=== PATIENT | female | born 1995 | race American Indian/Alaskan Native ===

== ENCOUNTER 2019-06-12 19:33 | Emergency (ER) | payer SELFPAY ==
[2019-06-12 19:46] VITALS: BP 162/87
--- NOTE | 2019-06-12 20:47 | Emergency Department Report ---
Minor Respiratory - HPI Chief Complaint: Sore Throat Stated Complaint: SWOLLEN THROAT, FEVER Time Seen by Provider: 06/12/19 20:46 ED Review of Systems ROS: Stated complaint: SWOLLEN THROAT, FEVER Other details as noted in HPI Comment: All other systems reviewed and negative ED Past Medical Hx - Past Medical History Previous Medical History?: No - Surgical History Past Surgical History?: No - Social History Smoking Status: Never Smoker Substance Use Type: None - Medications Home Medications: Home Medications Medication Instructions Recorded Confirmed Last Taken Type Amoxicillin [Amoxicillin 400 MG/5 500 mg PO BID #10 day 06/12/19 Unknown Rx ML] Minor Respiratory Exam - Exam General: Vital signs noted. No distress. Alert and acting appropriately. HEENT: Yes Pharyngeal Erythema, Yes Moist Mucous Membranes, No Pharyngeal Exudates Ear: Neither TM Bulge, Neither TM Erythema, Neither EAC Pain, Neither EAC Discharge Neck: Yes Supple, No Adenopathy Lungs: Yes Good Air Exchange, No Wheezes, No Ronchi Heart: Yes Regular, No Murmur Skin: No Rash Neurologic: Alert and oriented, no deficits. Musculoskeletal: Unremarkable. ED Course Vital Signs 06/12/19 19:45 Temperature 100.4 F H Pulse Rate 98 H Respiratory 20 Rate Blood Pressure 162/87 O2 Sat by Pulse 100 Oximetry ED Medical Decision Making - Medical Decision Making Lab Results 06/12/19 Range/Units 21:20 Group A Strep Rapid Positive A (Negative) Vital Signs 06/12/19 06/12/19 19:45 20:53 Temperature 100.4 F H Pulse Rate 98 H Respiratory 20 16 Rate Blood Pressure 162/87 O2 Sat by Pulse 100 Oximetry DC HOME WITH RX FOR AMOX TO FOLLOW UP WITH PCP VSS TAKING PO NONTOXIC - Differential Diagnosis RO STREP Critical care attestation.: If time is entered above; I have spent that time in minutes in the direct care of this critically ill patient, excluding procedure time. ED Disposition Clinical Impression: Strep pharyngitis Disposition: DC-01 TO HOME OR SELFCARE Is pt being admited?: No Does the pt Need Aspirin: No Condition: Stable Instructions: Strep Throat (ED) Additional Instructions: MOTRIN OR TYLENOL FOR PAIN OR FEVER MED ORDERED TODAY Referrals: PRIMARY CARE, [Primary Care Provider] - 3-5 Days [facility] [Outside] - 3-5 Days Time of Disposition: 22:00
[2019-06-12] MEDS ORDERED: MOTRIN PO ONE (20:48)
[2019-06-12] MEDS ORDERED: DECADRON IM ONE (21:14)
== END 2019-06-12 22:09 | disposition home or self-care (01) ==
LOC: ED 19:33
DX: J02.0 Streptococcal pharyngitis (principal); Z79.899 Other long term (current) drug therapy
CPT/HCPCS: 87430; 96372; 99283; J1100